=== PATIENT | male | born 1930 | race Caucasian/White ===

== ENCOUNTER → 2017-12-21 | Outpatient (CLI) | payer MEDICARE, OTHER ==
[2017-12-21 10:38] LABS: ADD MAN DIFF? NO
[2017-12-21 10:43] LABS: WHITE BLOOD COUNT 3.4 10^3/ul (4.8-10.8)
[2017-12-21 10:43] LABS: BASOPHILS % 0.9 % (0.0-2.0); EOSINOPHILS # 0.1 10^3/ul (0.0-0.5); EOSINOPHILS % 3.5 % (0.0-7.0); HEMATOCRIT 34.1 % (42.0-52.0); LYMPHOCYTES # 1.6 10^3/ul (0.8-2.9); LYMPHOCYTES % 46.2 % (15.0-51.0); MEAN CORPUSCULAR HEMOGLOBIN 38.2 pg (29.0-33.0); MEAN CORPUSCULAR HGB CONC 35.2 g/dl (32.0-37.0); MEAN CORPUSCULAR VOLUME 108.6 fl (82.0-101.0); MEAN PLATELET VOLUME 8.9 fl (7.4-10.4); MONOCYTE # 0.3 10^3/ul (0.3-0.9); MONOCYTES % 7.3 % (0.0-11.0); NEUTROPHIL # 1.4 10^3/ul (1.6-7.5); NEUTROPHILS % 41.8 % (39.0-77.0); PLATELET COUNT 110 10^3/UL (140-415); RED BLOOD COUNT 3.14 10^6/ul (4.70-6.10); RED CELL DISTRIBUTION WIDTH 15.7 % (11.5-14.5)
[2017-12-21 10:53] LABS: HEMOGLOBIN A1C 6.2 % (0-5.9)
[2017-12-21 10:58] LABS: ALANINE AMINOTRANSFERASE 61 IU/L (13-69); ALBUMIN 4.2 g/dl (3.3-4.9); ALBUMIN/GLOBULIN RATIO 1.23; ALKALINE PHOSPHATASE 209 IU/L (42-121); ANION GAP 16 (8-16); ASPARTATE AMINO TRANSFERASE 42 IU/L (15-46); BILIRUBIN,INDIRECT 0.9 mg/dl (0-1.1); BILIRUBIN,TOTAL 0.9 mg/dl (0.2-1.3); BLOOD UREA NITROGEN 30 mg/dl (7-20); CALCIUM 9.1 mg/dl (8.4-10.2); CARBON DIOXIDE 27 mmol/L (21-31); CHLORIDE 101 mmol/L (97-110); CHOL/HDL RATIO 2.4 RATIO; CHOLESTEROL 121 mg/dl (100-200); CREATININE 1.27 mg/dl (0.61-1.24); GLUCOSE 127 mg/dl (70-220); HDL CHOLESTEROL 49 mg/dl (31-75); LDL CHOLESTEROL,CALCULATED 50 mg/dl; POTASSIUM 4.9 mmol/L (3.5-5.1); SODIUM 139 mmol/L (135-144); TOTAL PROTEIN 7.6 g/dl (6.1-8.1); TRIGLYCERIDES 108 mg/dl (0-149)
[2017-12-22 14:57] LABS: CREATININE, RANDOM URINE 144 mg/dL (20-370); MICROALBUMIN 1.6 mg/dL; MICROALBUMIN/CREATININE RATIO 11 (<30)
== END | disposition home or self-care (01) ==
LOC: LAB 09:48
DX: E11.9 Type 2 diabetes mellitus without complications (principal); I10 Essential (primary) hypertension
CPT/HCPCS: 80053; 80061; 82043; 83036; 85025

== ENCOUNTER 2018-02-16 11:17 | Emergency (ER) | payer SELFPAY, OTHER, MEDICARE | END 2018-02-16 12:51 | disposition left against medical advice (07) | LOC: E/R 12:51 | DX: Z53.21 Procedure and treatment not carried out due to patient leaving prior to being seen by health care provider (principal) ==

== ENCOUNTER → 2018-03-02 | Outpatient (CLI) | payer MEDICARE, OTHER ==
[2018-03-02 11:35] LABS: ALANINE AMINOTRANSFERASE 29 IU/L (13-69); ALBUMIN/GLOBULIN RATIO 1.08; ALKALINE PHOSPHATASE 151 IU/L (42-121); ANION GAP 15 (8-16); ASPARTATE AMINO TRANSFERASE 36 IU/L (15-46); BILIRUBIN,INDIRECT 0.7 mg/dl (0-1.1); BILIRUBIN,TOTAL 0.7 mg/dl (0.2-1.3); BLOOD UREA NITROGEN 22 mg/dl (7-20); CARBON DIOXIDE 29 mmol/L (21-31); CHLORIDE 104 mmol/L (97-110); CHOL/HDL RATIO 2.9 RATIO; CHOLESTEROL 128 mg/dl (100-200); CREATININE 1.28 mg/dl (0.61-1.24); GLUCOSE 122 mg/dl (70-220); HDL CHOLESTEROL 44 mg/dl (31-75); LDL CHOLESTEROL,CALCULATED 59 mg/dl; POTASSIUM 4.6 mmol/L (3.5-5.1); SODIUM 143 mmol/L (135-144); TOTAL PROTEIN 7.7 g/dl (6.1-8.1); TRIGLYCERIDES 123 mg/dl (0-149)
[2018-03-03 13:32] LABS: CREATININE, RANDOM URINE 151 mg/dL (20-370); MICROALBUMIN 1.3 mg/dL; MICROALBUMIN/CREATININE RATIO 9 (<30)
== END | disposition home or self-care (01) ==
LOC: LAB 10:29
DX: N18.9 Chronic kidney disease, unspecified (principal)
CPT/HCPCS: 80053; 80061; 82043

== ENCOUNTER → 2018-06-06 | Outpatient (CLI) | payer MEDICARE, OTHER | END | disposition home or self-care (01) | LOC: RAD 09:52 | DX: I10 Essential (primary) hypertension (principal); E11.8 Type 2 diabetes mellitus with unspecified complications | CPT/HCPCS: 93005; 93306 ==

== ENCOUNTER → 2018-08-31 | Outpatient (CLI) | payer MEDICARE, OTHER ==
[2018-08-31 11:43] LABS: ALANINE AMINOTRANSFERASE 38 IU/L (13-69); ALBUMIN 3.4 g/dl (3.3-4.9); ALBUMIN/GLOBULIN RATIO 0.94; ALKALINE PHOSPHATASE 209 IU/L (42-121); ANION GAP 11 (8-16); ASPARTATE AMINO TRANSFERASE 58 IU/L (15-46); BLOOD UREA NITROGEN 32 mg/dl (7-20); CALCIUM 9.2 mg/dl (8.4-10.2); CARBON DIOXIDE 29 mmol/L (21-31); CHLORIDE 103 mmol/L (97-110); GLUCOSE 91 mg/dl (70-220); POTASSIUM 4.4 mmol/L (3.5-5.1); SODIUM 139 mmol/L (135-144)
== END | disposition home or self-care (01) ==
LOC: LAB 10:42
DX: N18.9 Chronic kidney disease, unspecified (principal)
CPT/HCPCS: 80053

== ENCOUNTER 2018-09-19 10:20 | Emergency (ER) | payer SELFPAY, OTHER, MEDICARE | END 2018-09-19 13:20 | disposition left against medical advice (07) | LOC: E/R 10:20 | DX: Z53.21 Procedure and treatment not carried out due to patient leaving prior to being seen by health care provider (principal) ==